=== PATIENT | female | born 1955 | race Caucasian/White ===

== ENCOUNTER 2017-06-08 13:13 | Inpatient (IN) | payer OTHER ==
[~2017-06-08] VITALS: Ht 157.5 cm; Wt 61.8 kg
--- NOTE | 2017-06-08 14:00 | NUR ---
PT WHEELED TO WRITING IN PAIN AND HOLDING LLQ AREA OF ABD. PT REPORTS A SUDDEN ONSET OF ABD PAIN SINCE 0900 THIS MORNING. NO ACTIVE VOMITING NOTED. NO S/S OF RESP DISTRESS
--- NOTE | 2017-06-08 15:00 | NUR ---
PT LYING ON ED GURNEY, DENIES PAIN AT THIS TIME, PT AAOX4, RESPS EVEN AND UNLABORED. FAMILY AT BEDSIDE, CALL LIGHT WITHIN REACH, NO S/S DISTRESS NOTED.
[2017-06-08 15:24] LABS: RED CELL DISTRIBUTION WIDTH 13.2 % (11.5-14.5)
[2017-06-08 15:40] LABS: BASOPHIL % 0 % (0-2); PLATELET COUNT 538 x10^3mcL (130-400)
[2017-06-08 15:42] LABS: ALBUMIN 4.5 g/dL (3.4-5.0); ALKALINE PHOSPHATASE 61 U/L (46-116); ALT/SGPT 26 U/L (14-59); AST/SGOT 21 U/L (15-37); BILIRUBIN TOTAL 0.87 mg/dL (0.20-1.00); CALCIUM 9.8 mg/dL (8.5-10.1); CARBON DIOXIDE 26.3 mmol/L (21-32); CHLORIDE SERUM 97 mmol/L (98-107); CREATININE SERUM 0.8 mg/dL (0.6-1.0); GFR1 > 60 mL/min; GLUCOSE SERUM 115 mg/dL (74-106); SODIUM SERUM 136 mmol/L (136-145); URIC ACID 5.5 mg/dL (2.6-6.0)
--- NOTE | 2017-06-08 15:42 | NUR ---
RESIDENT AT BEDSIDE FOR EVAL.
[2017-06-08 15:44] LABS: TOTAL PROTEIN, SERUM 8.6 g/dL (6.4-8.2)
[2017-06-08 15:45] LABS: POTASSIUM SERUM 2.6 mmol/L (3.5-5.1)
--- NOTE | 2017-06-08 16:50 | NUR ---
ADMITTING REPORT GIVEN TO KING.
--- NOTE | 2017-06-08 17:00 | NUR ---
PT TRANSFERRED VIA ED MARI ACCOMPANIED BY RODDY MARS, AND NAVYA CARDENAS. PT AAOX4, RESPS EVEN AND UNLABORED, NO S/S DISTRESS NOTED. PT ON FULL CM.
--- NOTE | 2017-06-08 17:18 | NUR ---
REC'D PT FROM ER VIA [facility]. PT IS AAOX4. TELE #5 SR. RESP EVEN AND UNLABORED. NO SOB NOTED. ABD SOFT. BS ACTIVE X4. C/O 02/14 LLQ PAIN. DENIES N/V AT THIS TIME. IV NOTED TO RAC. EDWARD CONTINUES TO INFUSE. ORIENTED PT TO CALL LIGHT. BED IN LOWEST POSITION. WILL ENDORSE TO PRIMARY RN.
[2017-06-08 17:27] LABS: T3 TOTAL 1.03 ng/mL
[2017-06-08 17:29] VITALS: BP 139/57
[2017-06-08 17:48] LABS: CHOLESTEROL/HDL RATIO 2.5; MAGNESIUM 1.6 mg/dL (1.8-2.4); PHOSPHOROUS 1.9 mg/dL (2.5-4.9)
[2017-06-08 18:33] LABS: FREE T4 1.22 ng/dL (0.76-1.46); FREE THYROXINE INDEX 3.7 ug/dL (1.4-4.5); T4(THYROXINE) 10.4 ug/dL (4.7-13.3)
--- NOTE | 2017-06-08 18:42 | NUR ---
PT RESTING IN BED, AROUSABLE TO TOUCH, REPORTS ABD PAIN CONTROLLED AT THIS TIME, DENIES N&V, DOSE OF FLAGYL INFUSED, DENIES ANY S&S OF ALLERGIC REACTION, PT REPORTS FEELING COLD, NO ELEVATED TEMP NOTED, FAM AT BEDSIDE, NO OTHER SIGNIFICANT CHANGES NOTED, WILL ENDORSE CARE TO NIGHT NURSE.
--- NOTE | 2017-06-08 19:30 | NUR ---
PT. IS A/O x4. NO COMPLAIN OF CHEST PAIN OR PRESSURE. TELE #5. NSR. PEDIAL PULSES PRESENT. NO EDEMA NOTED. LUNG SOUNDS CLEAR IN ALL FEILDS. NO SIGNS OF RESP. DISTRESS. BOWEL SOUNDS PRESENT X4, LIGHT TENDERNESS ON LOWER QUADS., MADE PT COMFTABLE. STATED IT HELP WITH PAIN. DENIES ANY NAUSEA AT THE MOMENT. SKIN IS WARM AND INTACT. IV ON RAC, PATENT AND INTACT. NO SIGNS OF INFILTRATION. NS RUNNING PER MD ORDER. ALL ADLS MET. CALL LIGHT WITHIN REACH. BED IN LOWEST SETTING. WILL CONTINUE TO MONITOR.
--- NOTE | 2017-06-08 19:30 | NUR ---
C/O NAUSEA, ADMIN ZOFRAN ORDERED, DECLINED DOSE OF FLU VAC AT THIS TIME, NIGHT RN MADE AWARE, PT WOULD LIKE TO RESCHEDULE VACCINE FOR TOMORROW.
--- NOTE | 2017-06-08 20:14 | NUR ---
SCHEDULED 1700 LEVAQUIN 750MG IV WAS HELD. MD GONZALEZ WAS MADE AWARE OF THE PT RECIEVING ER DOSE OF 500MG INSTEAD. ORDERED TO START LEVAQUIN 750MG TOMORROW. PHARMACY WAS NOTIFIED. WILL CONTINUE TO MONITOR PT.
[2017-06-08] MEDS ORDERED: EDARBYCLOR PO (20:46)
[2017-06-08] MEDS ORDERED: SIMVASTATIN20 M1 PO (20:47)
[2017-06-08 21:15] VITALS: BP 111/53
[2017-06-08 23:11] LABS: microscopic required? NO
[2017-06-08 23:17] LABS: UA SPECIFIC GRAVITY 1.025 (1.005-1.035); urine erythrocyte NEGATIVE (NEGATIVE)
[2017-06-09 02:36] LABS: CALCIUM 8.3 mg/dL (8.5-10.1); CARBON DIOXIDE 27.1 mmol/L (21-32); CHLORIDE SERUM 105 mmol/L (98-107); CREATININE SERUM 0.9 mg/dL (0.6-1.0); GFR1 > 60 mL/min; GLUCOSE SERUM 111 mg/dL (74-106); POTASSIUM SERUM 5.3 mmol/L (3.5-5.1); SODIUM SERUM 137 mmol/L (136-145)
--- NOTE | 2017-06-09 05:06 | NUR ---
HELP AMBULATED PT TO BATHROOM. PT. TOLERATED ACTIVITY WELL. PT VOIDED AND HAD A SOFT BM. PT COMPLAINED OF SLIGHT LIGHT HEADED, BUT SAID IT WAS NOT SEVERE. MADE PT. COMFORTABLE. IV RUNNING PER MD ORDER. BED IN LOWEST SETTING. CALL LIGHT WITHIN REACH. NPO SIGN OUTSIDE OF DOOR. WILL CONTINUE TO MONITOR PT.
[2017-06-09 05:44] VITALS: BP 98/50
[2017-06-09 06:07] LABS: BASOPHIL % 0.3 % (0-2); RED CELL DISTRIBUTION WIDTH 13.6 % (11.5-14.5)
[2017-06-09 06:21] LABS: CALCIUM 8.3 mg/dL (8.5-10.1); CARBON DIOXIDE 25.6 mmol/L (21-32); CHLORIDE SERUM 106 mmol/L (98-107); CREATININE SERUM 0.8 mg/dL (0.6-1.0); GFR1 > 60 mL/min; GLUCOSE SERUM 100 mg/dL (74-106); MAGNESIUM 1.6 mg/dL (1.8-2.4); PHOSPHOROUS 2.6 mg/dL (2.5-4.9); POTASSIUM SERUM 4.6 mmol/L (3.5-5.1); SODIUM SERUM 138 mmol/L (136-145)
[2017-06-09 06:45] LABS: PLATELET COUNT 417 x10^3mcL (130-400)
--- NOTE | 2017-06-09 07:05 | NUR ---
AAOX4 ABLE TO VERBALIZE NEEDS WITH CLEAR SPEECH, REPORTS ABD PAIN 2/10, TOLERABLE AT THIS LEVEL, ACTIVE BOWEL SOUNDS X4 QUADS, DENIES N&V, ABD SOFT, TENDER TO TOUCH, ON TELE #5 NSR ON MONITOR, DENIES HEART RELATED PAIN OR DISCOMFORT, IV AT RAC INFUSING NS AT 100ML/HR, CALL LIGHT WITHIN REACH, WILL CONTINUE TO PROVIDE CARE.
[2017-06-09 09:16] VITALS: BP 116/60
--- NOTE | 2017-06-09 10:17 | NUR ---
C/O ABD PAIN AT LLQ 01/15, ASSISTED TO RESTROOM, PAIN MED GIVEN, PT WAS ABLE TO TAKE ALL PO MEDS WITHOUT GI DISTRESS, CALL LIGHT WITHIN REACH, WILL CONTINUE TO PROVIDE CARE. AT BEDSIDE.
[2017-06-09] MEDS ORDERED: NOR10T PO (12:15)
[2017-06-09] MEDS ORDERED: LEVAQUIN500 M1 PO (12:18)
--- NOTE | 2017-06-09 12:18 | NUR ---
TELE MONITOR REPORTS RUN OF PVC'S, DR BURDEN AT [facility], WILL ORDER EKG, PATIENT DENIES ANY HEART RELATED PAIN OR DISCOMFORT, AT BEDSIDE, CALL LIGHT WITHIN REACH.
[2017-06-09] MEDS ORDERED: FLA500 PO (12:19)
[2017-06-09 13:17] VITALS: BP 123/51
--- NOTE | 2017-06-09 13:50 | NUR ---
TOLERATING LIQUID DIET WITHOUT GI DISTRESS, ABD PAIN CONTROLLED WITH PAIN MEDS, WILL CONTINUE TO PROVIDE CARE.
[2017-06-09 14:33] VITALS: BP 123/51
[2017-06-09 17:32] VITALS: BP 141/65
--- NOTE | 2017-06-09 19:20 | NUR ---
PATIENT ABLE TO TOLERATE REG DIET WITHOUT GI DISTRESS, DR ARREDONDO PROVIDED PATIENT WITH [facility], IV ANTIBIOTICS CHANGED TO PO, IV INFILTRATED, PT DECLINED INSERTION OF NEW IV, DR SAUNDERS IS AWARE, PT IS ABLE TO TOLERATE PO FLUIDS, PT WILL BE ABLE TO DISCHARGE HOME THIS EVENING, CARE ENDORSED TO NIGHT RN.
[2017-06-09 20:00] VITALS: BP 123/60
--- NOTE | 2017-06-09 20:10 | NUR ---
PTATIENT WANTES TO GO HOME [address], DISCHARGE INSTRUCTUION GIVEN ALREADY BY AM RN/.RESOURCE NURSE. IV SITE ACCESS REMOVED AT THE RAC, PRESSURE DRESSING APPLIED. NO BLEEDING NOTED PATIEN TOLERATED PROCEUDRE WELL. DISCAHRGED VIA WHEELCHAIR BY NURSE ASSIGNED ACCOMPANIED BY VIA PRIVATE CAR IN STABLE CONDITION.
== END 2017-06-09 20:25 | disposition home or self-care (01) | DRG 392 ==
LOC: ED 13:13 → DU 15:30
PROVIDERS: Emergency Medicine; ADMIT Family Medicine
DX: K57.32 Diverticulitis of large intestine without perforation or abscess without bleeding (principal); E87.6 Hypokalemia; E83.42 Hypomagnesemia; E83.39 Other disorders of phosphorus metabolism; E78.5 Hyperlipidemia, unspecified; I10 Essential (primary) hypertension; Z68.24 Body mass index [BMI] 24.0-24.9, adult
CPT/HCPCS: 83880; 84439; 90658; J1885; J1956; J2270; J2405; J3475; J3480; J3490; J7030; Q0092